=== PATIENT | male | born 1955 | race Caucasian/White ===

== ENCOUNTER 2017-11-28 20:32 | Observation (INO) | payer OTHER ==
[2017-11-28] MEDS ORDERED: NS 0.9% 1000 ML* 1,000 ML IV ONE ×2 (21:21→21:42)
[2017-11-28] MEDS ORDERED: Ondansetron INJ* 2 MG/ML VIAL IV ONE ×2 (21:21→21:41)
[2017-11-28] MEDS ORDERED: Morphine INJ* 4 MG/ML 1 ML SYRINGE (NEW SYRINGE VERSION) IV ONE (21:43)
[2017-11-28 21:45] LABS: ABS Basophils 0 10^3/ul (0-0.2); ABS Eosinophils 0 10^3/ul (0-0.6); ABS Lymphocytes 0.5 10^3/ul (1.0-4.8); ABS Monocytes 0.3 10^3/ul (0-0.8); ABS Neutrophils 5.7 10^3/ul (1.5-7.7); ABS Nucleated RBC 0 10^3/ul; Eosinophil % 0 % (0-6); Hematocrit 49 % (42-52); Hemoglobin 16.6 g/dl (14.0-18.0); Lymphocyte % 8.3 % (25-47); Mean Corpuscular HGB Conc 34 g/dl (31-36); Mean Corpuscular Hemoglobin 28 pg (27-31); Mean Corpuscular Volume 81 fL (80-94); Nucleated Red Blood Cells % 0.1; Platelet Count 139 10^3/ul (150-450); Red Blood Count 6.02 10^6/ul (4.0-5.4); Red Cell Distribution Width 14 % (10.5-15); White Blood Count 6.6 10^3/ul (3.5-10.8)
[2017-11-28 22:04] LABS: EGFR Non-African American 58.2 (>60)
[2017-11-28] MEDS ORDERED: Morphine VIAL* 4 MG/ML VIAL (1 ml vial) IV ONE (22:08)
[2017-11-28] MEDS ORDERED: Iodixanol* (CONTRAST) 320 MG/ML 100 ML SDV IV ONE (22:09)
[2017-11-29 00:37] LABS: Urine Appearance Clear; Urine Blood 1+ (Negative); Urine Color Yellow; Urine Ketones Negative (Negative); Urine Protein Negative (Negative); Urine Specific Gravity > 1.060 (1.010-1.030); Urine Urobilinogen Negative (Negative)
[2017-11-29] MEDS ORDERED: Morphine INJ* 4 MG/ML 1 ML SYRINGE (NEW SYRINGE VERSION) IV ONE (01:03)
[2017-11-29] MEDS ORDERED: Morphine VIAL* 4 MG/ML VIAL (1 ml vial) IV ONE (01:06)
[2017-11-29] MEDS ORDERED: Ondansetron INJ* 2 MG/ML VIAL IV PRN (01:33)
[2017-11-29] MEDS ORDERED: Temazepam CAP* 15 MG PO PRN (01:33)
[2017-11-29] MEDS ORDERED: Acetaminophen TAB* 325 MG PO PRN (01:33)
[2017-11-29] MEDS ORDERED: NS 0.9% 1000 ML* 1,000 ML IV SCH (01:45)
--- NOTE | 2017-11-29 03:39 | ED ---
Sony Abraham Rebecca, scribed for Jayson Ash MD on 11/28/17 at 2133 . Abdominal Pain/Male - HPI Summary HPI Summary: Pt is a 62 y/o M who presents to ED c/o abdominal pain. Sx began yesterday, located in the epigastric region, and current pain is severe, ranked 8/10. Sx aggravated and alleviated by nothing. Additionally c/o V/D, abdominal bloating and a fever of 102 this morning. Pt reports a few episodes of diarrhea today and 4-5 last night with BM being described as liquid. Last episode at 1400. PSHx appy. No recent Abx or abnormal food. - History of Current Complaint Chief Complaint: EDNauseaVomitDiarrh Stated Complaint: VOMITING/ABD PAIN Time Seen by Provider: 11/28/17 21:20 Hx Obtained From: Patient Onset/Duration: Lasting Days - 1 day, Still Present Severity Currently: Severe Pain Intensity: 8 Pain Scale Used: 0-10 Numeric Location: Epigastric Aggravating Factor(s): Nothing Alleviating Factor(s): Nothing Associated Signs And Symptoms: Positive: Fever, Vomiting, Diarrhea, Other - Abdominal bloating - Allergies/Home Medications Allergies/Adverse Reactions: Allergies Allergy/AdvReac Type Severity Reaction Status Date / Time Iodinated Contrast- Oral and AdvReac Vomiting Verified 11/28/17 20:38 IV Dye Home Medications: Home Medications Aspirin 81 mg CHEW TAB* [Aspirin Low Dose TAB*] 81 mg PO DAILY 11/28/17 [ History Confirmed 11/28/17] PMH/Surg Hx/FS Hx/Imm Hx Endocrine/Hematology History: Denies: Hx Diabetes, Hx Anemia Cardiovascular History: Reports: Hx Hypertension Denies: Hx Pacemaker/ICD GI History: Denies: Hx Jaundice Sensory History: Reports: Hx Contacts or Glasses Denies: Hx Hearing Aid Opthamlomology History: Reports: Hx Contacts or Glasses Psychiatric History: Denies: Hx Panic Disorder - Surgical History Surgery Procedure, Year, and Place: APPENDIX. knee surgery age 10. lipoma removal right antecub area Infectious Disease History: No Infectious Disease History: Denies: Traveled Outside the [place] in Last 30 Days - Family History Known Family History: Positive: Hypertension - Social History Alcohol Use: None Hx Substance Use: Yes Substance Use Type: Reports: None, Marijuana Substance Use Comment - Amount & Last Used: once every few years Hx Tobacco Use: No Smoking Status (MU): Never Smoked Tobacco Review of Systems Positive: Fever Positive: Abdominal Pain, Vomiting, Diarrhea, Other - Abdominal bloating All Other Systems Reviewed And Are Negative: Yes Physical Exam - Summary Physical Exam Summary: VITAL SIGNS: Reviewed. GENERAL: ~Patient is a well-developed and nourished male who is lying comfortable in the stretcher. Patient is not in any acute respiratory distress. HEAD AND FACE: No signs of trauma. No ecchymosis, hematomas or skull depressions. No sinus tenderness. EYES: PERRLA, EOMI x 2, No injected conjunctiva, no nystagmus. EARS: Hearing grossly intact. Ear canals and tympanic membranes are within normal limits. MOUTH: Oropharynx within normal limits. NECK: Supple, trachea is midline, no adenopathy, no JVD, no carotid bruit, no c- spine tenderness, neck with full ROM. CHEST: Symmetric, no tenderness at palpation LUNGS: Clear to auscultation bilaterally. No wheezing or crackles. CVS: Regular rate and rhythm, S1 and S2 present, no murmurs or gallops appreciated. ABDOMEN: Soft, mild diffuse tenderness with hypoactive BS. No signs of distention. No rebound no guarding, and no masses palpated. EXTREMITIES: FROM in all major joints, no edema, no cyanosis or clubbing. NEURO: Alert and oriented x 3. No acute neurological deficits. Speech is normal and follows commands. SKIN: Dry and warm Triage Information Reviewed: Yes Vital Signs On Initial Exam: Initial Vitals Temp Pulse Resp BP Pulse Ox 97.6 F 103 20 143/94 93 11/28/17 20:34 11/28/17 20:34 11/28/17 20:34 11/28/17 20:34 11/28/17 20:34 Vital Signs Reviewed: Yes Diagnostics - Vital Signs Vital Signs Temp Pulse Resp BP Pulse Ox 11/28/17 21:10 87 93 11/28/17 21:08 147/99 11/28/17 20:34 97.6 F 103 20 143/94 93 - Laboratory Result Diagrams: 11/28/17 21:38 11/28/17 21:38 Lab Statement: Any lab studies that have been ordered have been reviewed, and results considered in the medical decision making process. - CT CT Abd/Pel CT Interpretation: Positive (See Comments) - Small bowel obstruction without abscess, free or discrete transition point. Moderate prostate enlargement. ADDENDUM: Although SBO cannot be excluded, findings may represent a localized small bowel ileus. ED physician reviewed this radiology report. Pending official report. CT Interpretation Completed By: Radiologist - EKG 2125 Cardiac Rate: NL - 87 bpm EKG Rhythm: Sinus Rhythm EKG Interpretation: Nonspecific T wave changes in the inferior leads Re-Evaluation - Re-Evaluation First Eval Re-Evaluation Time: 00:48 Comment: Discussed results with the pt. Abdominal Pain Fem Course/Dx - Course Assessment/Plan: Pt is a 62 y/o M who presents to ED c/o abdominal pain since yesterday, located in the epigastric region, and current pain is severe, ranked 8/10. Additionally c/o V/D, abdominal bloating and a fever of 102 this morning. Pt reports a few episodes of diarrhea today and 4-5 last night with BM being described as liquid. Last episode at 1400. PSHx appy. No recent Abx or abnormal food. CT Abd/Pel reveals "Small bowel obstruction without abscess, free or discrete transition point. Moderate prostate enlargement. ADDENDUM: Although SBO cannot be excluded, findings may represent a localized small bowel ileus." EKG is sinus rhythm with with nonspecific T wave changes in the inferior leads. In the ED course, pt received morphine, zofran and fluids. Discussed care of pt with Dr. Patricio who accepted pt for admission. Pt does not have any signs/ symptoms of mechanical SBO, pt has no vomiting in the ED. He has been having diarrhea. He has hypoactive bowel sounds so all these findings are against a mechanical SBO. However, the pt will be admitted for observation with Dx of gastroentertiis, abdominal pain, r/o SBO. He understands and agrees. - Diagnoses Provider Diagnoses: Gastroenteritis, Abdominal pain - Provider Notifications Discussed Care Of Patient With: Bucky Patricio Time Discussed With Above Provider: 01:34 Instructed by Provider To: Admit As Observation Discharge - Sign-Out/Discharge Documenting (check all that apply): Discharge - Admitted - Discharge Plan Condition: Stable Disposition: ADMITTED TO [facility] Referrals: Krystle Hernandez MD [Primary Care Provider] - The documentation as recorded by the Sony ernandez Rebecca accurately reflects the service I personally performed and the decisions made by me, Jayson Ash MD.
[2017-11-29] MEDS: Morphine INJ* 2 MG/ML 1 ML CARPUJECT IV PRN ×2 (05:04→11:46)
[2017-11-29] MEDS: Heparin VIAL(*) 5000 UNITS/ML VIAL (FIVE THOUSAND) SUBCUT SCH ×2 (05:08→14:40)
[2017-11-29 06:06] LABS: ABS Basophils 0 10^3/ul (0-0.2); ABS Eosinophils 0 10^3/ul (0-0.6); ABS Monocytes 0.4 10^3/ul (0-0.8); ABS Neutrophils 3.7 10^3/ul (1.5-7.7); ABS Nucleated RBC 0 10^3/ul; Eosinophil % 0.2 % (0-6); Hematocrit 44 % (42-52); Hemoglobin 14.9 g/dl (14.0-18.0); Lymphocyte % 19.3 % (25-47); Mean Corpuscular HGB Conc 34 g/dl (31-36); Mean Corpuscular Hemoglobin 28 pg (27-31); Mean Corpuscular Volume 82 fL (80-94); Mean Platelet Volume 8.8 um3 (7.4-10.4); Nucleated Red Blood Cells % 0.1; Platelet Count 118 10^3/ul (150-450); Red Blood Count 5.35 10^6/ul (4.0-5.4); Red Cell Distribution Width 14 % (10.5-15); White Blood Count 5.1 10^3/ul (3.5-10.8)
[2017-11-29 06:19] LABS: EGFR Non-African American 71.9 (>60)
--- NOTE | 2017-11-29 07:45 | RAD ---
CLINICAL HISTORY: Abdominal pain COMPARISON: None TECHNIQUE: Multiple contiguous axial CT scans were obtained of the abdomen and pelvis after the administration of intravenous contrast. Coronal and sagittal multiplanar reformations are submitted for review. Oral contrast was not administered. Delayed images were obtained through the abdomen and pelvis. FINDINGS: LUNG BASES: There is linear atelectasis of the lung bases bilaterally. LIVER: The liver is diffusely low in attenuation compared to the spleen. There are no focal hepatic parenchymal masses. The liver measures 21.4 cm in long axis. BILE DUCTS: There is no intrahepatic or extrahepatic biliary dilatation. GALLBLADDER: The gallbladder is normal, without pericholecystic inflammatory change. PANCREAS: The pancreas is normal, without mass or ductal dilatation. SPLEEN: Normal in size and appearance. UPPER GI TRACT: Evaluation of the gastrointestinal tract is limited by incomplete gastric distention. The upper GI tract is unremarkable. SMALL BOWEL AND MESENTERY: There is distention mild dilatation of small bowel loops proximally with transition to decompressed small bowel at the left mid abdomen is seen on coronal image 50. COLON: There are multiple diverticula of the descending and sigmoid colon. There is no pericolonic inflammatory change. ADRENALS: Normal bilaterally. KIDNEYS: The kidneys are normal in shape, size, contour, and axis. There is no hydronephrosis or nephrolithiasis. BLADDER: There is additional extension of the prostate gland into the bladder. There is asymmetric posterior bladder wall thickening at the level of the trigone on the right. PELVIC ORGANS: The prostate is diffusely enlarged, with intraluminal extension into the bladder.. The seminal vesicles are symmetric. AORTA: There is minimal atherosclerotic disease of the abdominal aorta. There is no intestinal dilatation.. IVC: Unremarkable LYMPH NODES: There is no lymphadenopathy by size criteria. ABDOMINAL WALL: There is no evidence for abdominal wall hernia. BONES AND SOFT TISSUES: Degenerative changes are noted. OTHER: None IMPRESSION: 1. DISTENTION AND MILD DILATATION OF SMALL BOWEL LOOPS, WITH TRANSITION TO DECOMPRESSED SMALL BOWEL LOOPS IN THE LEFT MIDABDOMEN, SUGGESTIVE OF EARLY OR PARTIAL OBSTRUCTION. 2. DIVERTICULOSIS. 3. HEPATOMEGALY WITH FATTY INFILTRATION OF LIVER. 4. ENLARGED PROSTATE WITH INTRALUMINAL EXTENSION INTO THE BLADDER. 5. THERE IS ASYMMETRIC BLADDER WALL THICKENING ON THE RIGHT. RECOMMEND CONSIDERATION OF CORRELATION WITH DIRECT VISUALIZATION OF THE BLADDER
--- NOTE | 2017-11-29 08:59 | HP ---
CC: Krystle Hernandez M.D. * HISTORY AND PHYSICAL: DATE OF ADMISSION: 11/29/17. TIME OF MY EVALUATION: 4:00 a.m. PRIMARY CARE PROVIDER: Krystle Hernandez M.D. CHIEF COMPLAINT: Abdominal pain/nausea/vomiting/diarrhea. HISTORY OF PRESENT ILLNESS: Mr. Dean is a 62-year-old gentleman with limited past medical history - paroxysmal atrial fibrillation, on diltiazem, as well as enlarged prostate under urology surveillance and treatment - who now presents with abdominal pain with nausea, vomiting, and diarrhea. The patient states that he has had a fever, highest 102 degrees Fahrenheit. He also complains of vomiting and diarrhea. He had a few episodes of diarrhea the day prior to admission, November 28. He had a liquid BM. There has been no blood. The patient has a surgical history of appendectomy secondary to acute appendicitis, but that was many years ago. Patient denies any recent abnormal food or ill contacts. The patient has vomited several times. He has epigastric pain, at its most severe was 8/10. The patient underwent an abdominal CT scan which, preliminarily, was interpreted as a small bowel obstruction without a discrete transition points. Moderate prostate enlargement was noted. Differential diagnosis included a small bowel ileus. The official radiology read is, again, pending. The patient was referred for admission when several abnormal labs came back including an elevated creatinine at 1.25 relative to his baseline at 1, with an elevated anion gap of 12, and ongoing abdominal pain and an elevated CRP at 54.3. The patient's urine studies were normal as was his electrocardiogram. The patient was afebrile here, though the fever reported at home was noted. His blood pressures are robust. He does not meet criteria for sepsis with lactic acid normal at 1.5, and no known organ dysfunction. PAST MEDICAL HISTORY: 1. Paroxysmal atrial fibrillation (not on anticoagulation) - rate control/ hypertension control with Diltiazem. 2. Enlarged prostate - sees Dr. Levi Pedro for urology. 3. Hypertension. 4. History of contacts/glasses. PAST SURGICAL HISTORY: Knee surgery at age 10, lipoma removal from the right antecubital area, as well as history of appendectomy. OUTPATIENT MEDICATIONS: 1. Aspirin 81 mg by mouth daily. 2. Nexium 20 mg by mouth daily. 3. Diltiazem 24 mg by mouth daily with meal (extended-release). ALLERGIES: Reported history to oral and IV dye, although the patient states that he has had IV dye and done well since that event. FAMILY HISTORY: Significant only for hypertension. No history of episodic gastrointestinal disease similar to current presentation. 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 She is the surrogate decision maker. Her emergency contact is on file. He is a full code. REVIEW OF SYSTEMS: A review of 14-point systems was accomplished at the bedside. This is negative except for the pertinent positives as mentioned above in the HPI and past medical history. PHYSICAL EXAMINATION GENERAL APPEARANCE: Approximately a 58-year-old man with no apparent distress. He is sleeping in his bed. No apparent distress. Awake, alert, and oriented x3. Good medical file clerk. VITAL SIGNS: Temperature 98.6 Fahrenheit, pulse 71, oxygen saturation 93% on room air, blood pressure 148/88, respirations 16 per minute and regular. HEENT: Oropharynx is clear. Mucous membranes are moist. Nares patent. No posterior pharyngeal erythema or exudate. NECK: Supple. No elevated JVD. CHEST: Clear breath sounds anteriorly and posteriorly. No rales, rhonchi, or wheezing. HEART: Regular rate, and rhythm. No murmurs, rubs, or gallop. ABDOMEN: Soft and nontender at this time (status post opioid administration), quiet bowel sounds. NEURO: Moves all extremities equally. Normal sensory and motor components. SKIN: Dry, intact. No rashes, lesions, breakdown. LYMPH: No adenopathy appreciated. EXTREMITIES: Without clubbing, cyanosis, or edema. Good muscle tone and bulk throughout. No evidence of arthritis. ADMISSION DATA: Includes a normal white blood cell count of 6.6, hemoglobin robust at 16.6, platelets 139. Blood chemistries significant for borderline low sodium at 137. Modestly elevated anion gap at 12. Creatinine 1.25, BUN normal at 21, glucose 149. Lactic acid 1.5. Total bilirubin modestly elevated at 2. AST and ALT are normal. Troponin 0.01. CRP elevated at 54.29. Protein levels preserved. Urinalysis unremarkable except 1+ blood by dip. Specific gravity is elevated at greater than 1.06. CT scan was described in the HPI, but the final read is pending. Therefore, diagnosis is SBO without transition point versus ileus. IMPRESSION: Mr. Dean is 62-year-old gentleman with what seems to be a recent gastrointestinal illness, likely viral gastroenteritis with nausea, vomiting, and diarrhea, poor oral intake for 2 days and dehydration, with elevated creatinine relative to baseline. PLAN BY MEDICAL PROBLEM: 1. Gastroenteritis with abdominal pain manifest by nausea, vomiting, and diarrhea with symptoms resolved other than pain (pain continues). 2. Place patient on observation - hydrate with 1-2 liters of normal saline with recheck of labs for response of creatinine and correction of dehydration. 3. Check and replete electrolytes. 4. Monitor diarrheal output, and ability to tolerate oral fluids and food. 5. Patient is currently in normal sinus rhythm - no need for telemetry. 6. We will continue outpatient medications. 7. We will follow up CT abdomen/pelvis official read. 8. We will evaluate for inpatient status based on clinical progress. TOTAL SPENT: Total time taken to admit Mr. Dean was 50 minutes; greater than half the time was spent at the bedside going over his history and physical examination, and explaining the plan of care to him. [id number]/[facility] #: [id number] SHERIF
[2017-11-29] MEDS ORDERED: Aspirin 81 mg CHEW TAB* 81 MG TAB.CHEW PO SCH (09:00)
[2017-11-29] MEDS ORDERED: Omeprazole CAP* 20 MG PO SCH (09:00)
[2017-11-29] MEDS ORDERED: Diltiazem CD CAP* 240 MG PO SCH (09:00)
--- NOTE | 2017-11-29 10:48 | PN ---
Subjective Date of Service: 11/29/17 Interval History: Patient was seen and examined at bedside. Reports feeling much better, just tired from lack of sleep. His abdominal pain has resolved. Denies nausea or vomiting. Has not had any loose BMs since he was admitted last night. Passing flatus and feels hungry. Tolerating clear liquids. Ambulatory OOB. He has no c/ o today. He thinks a turkey club sandwich that he had while travelling down [place] might caused his abdominal discomfort and N/V/D. No recent antibiotics use or sick contact. Family History: Unchanged from Admission Social History: Unchanged from Admission Past Medical History: Unchanged from Admission Objective Active Medications: Acetaminophen (Tylenol Tab*) 650 mg PO Q4H PRN PRN Reason: FEVER/PAIN Aspirin (Aspirin 81 Mg Chew Tab*) 81 mg PO DAILY [facility] Last Admin: 11/29/17 08:51 Dose: 81 mg Diltiazem HCl (Cardizem Cd Cap*) 240 mg PO DAILY WITH MEAL [facility] PRN Reason: Protocol Last Admin: 11/29/17 09:15 Dose: 240 mg Heparin Sodium (Porcine) (Heparin Vial(*)) 5,000 units SUBCUT Q8HR [facility] Last Admin: 11/29/17 05:08 Dose: 5,000 units Morphine Sulfate (Morphine Inj (Syringe)*) 2 mg IV Q4H PRN PRN Reason: PAIN Last Admin: 11/29/17 05:04 Dose: 2 mg Omeprazole (Prilosec Cap*) 20 mg PO 0600 [facility] Last Admin: 11/29/17 09:15 Dose: 20 mg Ondansetron HCl (Zofran Inj*) 4 mg IV Q4H PRN PRN Reason: NAUSEA/VOMITING Temazepam (Restoril Cap*) 15 mg PO BEDTIME PRN PRN Reason: INSOMNIA Vital Signs - 8 hr 11/29/17 11/29/17 11/29/17 03:00 03:17 03:24 Temperature 98.6 F 98.2 F Pulse Rate 70 71 69 Respiratory 16 16 Rate Blood Pressure 148/88 148/88 156/91 (mmHg) O2 Sat by Pulse 94 93 94 Oximetry 11/29/17 11/29/17 11/29/17 03:28 05:04 06:23 Temperature 98.2 F Pulse Rate 69 Respiratory 16 18 18 Rate Blood Pressure 156/91 (mmHg) O2 Sat by Pulse 94 Oximetry 11/29/17 07:21 Temperature 97.8 F Pulse Rate 73 Respiratory 18 Rate Blood Pressure 148/98 (mmHg) O2 Sat by Pulse 96 Oximetry Oxygen Devices in Use Now: None Appearance: Appears healthy and well-developed. Laying on bed with in room , comfortable and in NAD. Eyes: No Scleral Icterus, PERRLA Ears/Nose/Mouth/Throat: Mucous Membranes Moist Neck: NL Appearance and Movements; NL JVP, Trachea Midline Respiratory: Symmetrical Chest Expansion and Respiratory Effort, Clear to Auscultation Cardiovascular: NL Sounds; No Murmurs; No JVD, RRR Abdominal: No Hepatosplenomegaly, - - Soft and non-tender. Mild distension noted , but no guarding, rigidity or tympany. No rebound tenderness. Bowel sounds normoactive in all quadrants. Extremities: No Edema Neurological: Alert and Oriented x 3 Nutrition: Taking PO's Result Diagrams: 11/29/17 05:49 11/29/17 05:49 Diagnostic Imaging: Patient Name: IVONNE DEAN JR Medical Record#: [id number] Ordering Physician: Jayson Ash MD Acct.#: [id number] : 1955 Age: 62 Sex: M Location: [address] [place] [address] - MEDICAL Exam Date: 11/28/172140 ADM Status: ADM Felix Order Information: CT ABD/PEL W Accession Number: [id number] CPT: 89619 CLINICAL HISTORY: Abdominal pain OTHER: None IMPRESSION: 1. DISTENTION AND MILD DILATATION OF SMALL BOWEL LOOPS, WITH TRANSITION TO DECOMPRESSED SMALL BOWEL LOOPS IN THE LEFT MIDABDOMEN, SUGGESTIVE OF EARLY OR PARTIAL OBSTRUCTION. 2. DIVERTICULOSIS. 3. HEPATOMEGALY WITH FATTY INFILTRATION OF LIVER. 4. ENLARGED PROSTATE WITH INTRALUMINAL EXTENSION INTO THE BLADDER. 5. THERE IS ASYMMETRIC BLADDER WALL THICKENING ON THE RIGHT. RECOMMEND CONSIDERATION OF CORRELATION WITH DIRECT VISUALIZATION OF THE BLADDER Assess/Plan/Problems-Billing Assessment: A 62 y/o male with 2 days history of increasing abdominal pain and distension with associated N/V/D, consistent with viral gastroenteritis. - Patient Problems (1) Gastroenteritis Current Visit: Yes Status: Acute Comment: Patient seems to improve clinically overnight. Plan to advance his diet to full liquids for lunch. He feels hungry and has been passing flatus as well. No recurrent diarrhea since admission. No nausea or vomiting since admission. (2) Dehydration Current Visit: Yes Status: Acute Comment: Improving with IVF hydration and tolerated PO intake (3) Hypertension Current Visit: Yes Comment: Controlled, will continue his Diltiazem (4) Gastroesophageal reflux Current Visit: Yes Status: Acute Code(s): K21.9 - GASTRO-ESOPHAGEAL REFLUX DISEASE WITHOUT ESOPHAGITIS SNOMED Code(s): 142685427 Comment: Continue PPI coverage with Prilosec (5) DVT prophylaxis Current Visit: Yes Status: Acute Code(s): IUL7047 - SNOMED Code(s): 158464853 Comment: Early ambulation (6) Full code status Current Visit: Yes Status: Acute Code(s): Z78.9 - OTHER SPECIFIED HEALTH STATUS SNOMED Code(s): 626352446 Comment: He is a full code. Status and Disposition: Mr. Dean is clinically improving with no abdominal pain, N/V/D since his admission late last night. He is tolerating PO intake. Repeated labs this AM unremarkable. Plan to advance his diet today. If continues to improve, likely to discharge home this afternoon/evening.
[2017-11-29 16:22] VITALS: BP 144/91
--- NOTE | 2017-11-30 22:56 | DS ---
AMENDED REPORT NOW INCLUDES COSIGNER DESIGNATION - ESIGNED BEFORE ADJUSTMENTS DISCHARGE SUMMARY: DATE OF ADMISSION: 11/28/17 DATE OF DISCHARGE: 11/29/17 PATIENT OF: Bucky Patricio MD ADMITTING PHYSICIAN: Bucky Patricio MD ATTENDING PHYSICIAN: Dr. Schroeder.* (DICTATED BY HORTENCIA GONZALES) ADMISSION DIAGNOSES: 1. Abdominal pain. 2. Nausea, vomiting and diarrhea. 3. Probable viral gastroenteritis. 4. History of gastroesophageal reflux disease. 5. History of paroxysmal atrial fibrillation with rate control using diltiazem. DISCHARGE DIAGNOSES: 1. Abdominal pain. 2. Nausea, vomiting and diarrhea. 3. Probable viral gastroenteritis. 4. History of gastroesophageal reflux disease. 5. History of paroxysmal atrial fibrillation with rate control using diltiazem. CONSULTATION: None. BRIEF MEDICAL HISTORY: Mr. Dean is a 62-year-old gentleman with limited past medical history with the exception of paroxysmal atrial fibrillation for which he has been taking diltiazem with good rate control. He presented to the emergency room in the late evening hours of 11/28/17 with complaints of worsening abdominal pain with associated nausea, vomiting and diarrhea. He also reported tactile fever that he measured and it was up to 102 degrees at home. He denies any recent travel outside the country or antibiotic intake. He had noticed no coffee-ground emesis or bright red blood per rectum. The patient reports that he was traveling for the past couple of days and had multiple meals from restaurants and fast food places. He returned home yesterday and noticed gradual abdominal cramping mostly in the upper abdomen with associated nausea and 1 episode of large amount of emesis prior to presentation to the emergency room. He was evaluated and he was found to have elevated CRP at 54 value as well as elevated anion gap of 12. The patient notes that he has been not able to maintain any p.o. intake due to his nausea. He also had a CT scan of the abdomen and pelvis that revealed the possibility of dilated small bowel consistent with ileus versus small bowel obstruction. Given his ongoing symptoms, the patient was admitted for observation under the hospitalist service. HOSPITAL COURSE: The patient was admitted under the hospitalist service for observation and IV hydration. His labs were repeated on the following day and his electrolytes was corrected accordingly. He was evaluated the next morning after he received 3 L of normal saline. He was able to tolerate p.o. intake using clear liquids and his diet was slowly advanced over the day. He was ambulatory out of bed in stable condition. His exam was essentially unremarkable with the exception of mild abdominal dilatation. He had no tenderness, rebound or guarding. He continued to pass flatus and the patient was evaluated again in the afternoon and was found to be stable for discharge. DISCHARGE MEDICATIONS: Include: 1. Zofran ODT 4 mg p.o. q.6 hours as needed for nausea. 2. Nexium 20 mg p.o. daily. 3. Diltiazem 240 mg p.o. daily. 4. Aspirin 81 mg p.o. daily. PROBLEM LIST: 1. Viral gastroenteritis, resolved with IV hydration and symptomatic treatment. 2. Dehydration, resolved with IV hydration and p.o. intake. 3. Hypertension, controlled. 4. Gastroesophageal reflux disease, will continue his Nexium. HORTENCIA GONZALES [id number]/[facility] #: [id number] MTDReuben
== END 2017-11-29 17:00 | disposition home or self-care (01) ==
LOC: ED 20:32 → MED 11-29 01:33
PROVIDERS: ADMIT Internal Medicine; ATTEND Internal Medicine
DX: K52.9 Noninfective gastroenteritis and colitis, unspecified (principal); E86.0 Dehydration; I10 Essential (primary) hypertension; K21.9 Gastro-esophageal reflux disease without esophagitis; K59.8 Other specified functional intestinal disorders; R10.9 Unspecified abdominal pain; R50.9 Fever, unspecified; R11.10 Vomiting, unspecified; R19.7 Diarrhea, unspecified; R14.0 Abdominal distension (gaseous); K57.90 Diverticulosis of intestine, part unspecified, without perforation or abscess without bleeding; K76.0 Fatty (change of) liver, not elsewhere classified
CPT/HCPCS: 36415; 74177; 80048; 80053; 81003; 81015; 83605; 83690; 84484; 85025; 86140; 87040; 93005; 99284; A9270-GY; G0378; J1644; J2270; J2405; Q9967

== ENCOUNTER 2018-09-30 04:39 | Emergency (ER) | payer OTHER ==
[2018-09-30] MEDS ORDERED: Aspirin 81 mg CHEW TAB* 81 MG TAB.CHEW PO ONE (05:42)
[2018-09-30] MEDS ORDERED: Aspirin 81 mg CHEW TAB* 81 MG TAB.CHEW ONE (05:45)
[2018-09-30 06:02] LABS: ABS Basophils 0 10^3/ul (0-0.2); ABS Eosinophils 0.1 10^3/ul (0-0.6); ABS Lymphocytes 1.5 10^3/ul (1.0-4.8); ABS Monocytes 0.5 10^3/ul (0-0.8); ABS Neutrophils 4.3 10^3/ul (1.5-7.7); ABS Nucleated RBC 0 10^3/ul; Eosinophil % 1.5 %; Hematocrit 45 % (42-52); Lymphocyte % 23.1 %; Mean Corpuscular HGB Conc 33 g/dl (31-36); Mean Corpuscular Hemoglobin 27 pg (27-31); Mean Corpuscular Volume 82 fL (80-94); Nucleated Red Blood Cells % 0; Platelet Count 151 10^3/ul (150-450); Red Blood Count 5.49 10^6/ul (4.00-5.40); Red Cell Distribution Width 14 % (10.5-15); White Blood Count 6.3 10^3/ul (3.5-10.8)
[2018-09-30] MEDS ORDERED: Morphine VIAL* 4 MG/ML VIAL (1 ml vial) IV ONE (06:03)
[2018-09-30 06:11] LABS: Activated Partial Thrombo Time 27.5 seconds (26.0-36.3); INR 0.96 (0.77-1.02)
[2018-09-30] MEDS ORDERED: Morphine VIAL* 10 MG/ML 1 ML VIAL IV ONE (06:15)
--- NOTE | 2018-09-30 06:23 | ED ---
HPI Cardiac - HPI Summary HPI Summary: Patient is a 63-year-old male with history of A. fib, HTN, HCL presenting to the ED with CC of acute onset of mid back pain radiating to the L side of the chest. This occurred at 3am this morning awakening him from sleep and has remained constant. Pain is rated 7/10 since 3am and currently a 6/10. He also endorses a-fib. He is able to tell when he is in a-fib and states it occurs maybe twice a year (usually when he is eating an unhealthy diet.) Symptoms are not worse or better with positioning. Symptoms not worse with exertion. Denies diaphoresis during this episode and denies any weakness. He endorses transient nausea (he states likely secondary to pain) but no emesis. Two bowel movements which were small and loose this morning after onset. Hx of some back pain but states this feels much different. Denies SOB. Denies numbness or tingling or temperature changes in the arms/hands or legs/feet. Denies neck pain or pain to the arms. Denies ALVARADO, visual changes. Medications include: Diltiazem 240, Aspirin 81mg and Irbesartan 75mg. - History of Current Complaint Chief Complaint: EDGeneral Stated Complaint: BACK PAIN, GENERAL ILLNESS Time Seen by Provider: 09/30/18 05:41 Hx Obtained From: Patient Onset/Duration: Started Hours Ago Time of Onset: 03:00 Timing: Constant Initial Severity: Moderate Current Severity: Moderate Pain Intensity: 8 Pain Scale Used: 0-10 Numeric Chest Pain Location: Diffuse - mid back radiating to the left chest Chest Pain Radiates: Yes Chest Pain Radiates To:: Other - left chest Character: Dull/Aching, Irregular Aggravating Factor(s): Nothing Alleviating Factor(s): Nothing Associated Signs and Symptoms: Positive: Chest Pain, Palpitations. Negative: Vision Changes, Anxiety, Recent Stress, Headaches, Numbness, Shortness of Breath , Lightheadedness, Diaphoresis, Productive Cough, Nonproductive Cough, Calf Pain /Swelling, Vomiting - Risk Factors Pulmonary Embolism Risk Factors: Negative Cardiac Risk Factors: Negative Pseudomonas Risk Factors: Negative Tuberculosis Risk Factors: Negative - Additional Pertinent History Primary Care Physician: JOSE DAVID - Allergy/Home Medications Allergies/Adverse Reactions: Allergies Allergy/AdvReac Type Severity Reaction Status Date / Time No Known Allergies Allergy Verified 09/30/18 06:26 Home Medications: Home Medications Irbesartan 75 mg PO DAILY 09/30/18 [History Confirmed 09/30/18] Saw/Py/Net/Pumpk/Beta/Ly/Zn/Cu [Prostate Control Softgel] 1 cap PO DAILY [History Confirmed 09/30/18] PMH/Surg Hx/FS Hx/Imm Hx Previously Healthy: Yes - HCl, HTN, A. fib Endocrine/Hematology History: Denies: Hx Diabetes, Hx Anemia Cardiovascular History: Reports: Hx Hypercholesterolemia, Hx Hypertension, Other Cardiovascular Problems/Disorders - SVT Denies: Hx Pacemaker/ICD Respiratory History: Reports: Hx Sleep Apnea GI History: Reports: Hx Gastroesophageal Reflux Disease Denies: Hx Jaundice History: Reports: Hx Benign Prostatic Hyperplasia Denies: Hx Renal Disease Sensory History: Reports: Hx Contacts or Glasses Denies: Hx Deafness, Hx Hearing Aid Opthamlomology History: Reports: Hx Contacts or Glasses Psychiatric History: Denies: Hx Panic Disorder - Surgical History Surgery Procedure, Year, and Place: APPENDIX. knee surgery age 10. lipoma removal right antecub area - Immunization History Hx Pertussis Vaccination: No Immunizations Up to Date: Yes Infectious Disease History: No Infectious Disease History: Denies: Traveled Outside the [place] in Last 30 Days - Family History Known Family History: Positive: Hypertension - Social History Occupation: Employed Full-time Lives: With Family Alcohol Use: Rare Hx Substance Use: Yes Substance Use Type: Reports: None Substance Use Comment - Amount & Last Used: once every few years Hx Tobacco Use: No Smoking Status (MU): Never Smoked Tobacco Review of Systems Negative: Fever, Chills, Fatigue, Skin Diaphoresis Negative: Epistaxis, Dental Pain Positive: Chest Pain - with associated back pain. Negative: Palpitations Negative: Shortness Of Breath, Cough Genitourinary: Negative Positive: no symptoms reported, see HPI Negative: Arthralgia, Myalgia Skin: Negative Neurological: Negative All Other Systems Reviewed And Are Negative: Yes Physical Exam Triage Information Reviewed: Yes Vital Signs On Initial Exam: Initial Vitals Temp Pulse Resp BP Pulse Ox 98.7 F 74 16 149/92 96 09/30/18 04:39 09/30/18 04:39 09/30/18 04:39 09/30/18 04:39 09/30/18 04:39 Vital Signs Reviewed: Yes Appearance: Positive: Well-Appearing, Well-Nourished Skin: Positive: Warm, Skin Color Reflects Adequate Perfusion Head/Face: Positive: Normal Head/Face Inspection Eyes: Positive: EOMI, JOHANA, Conjunctiva Clear Neck: Positive: Supple, No Lymphadenopathy Respiratory/Lung Sounds: Positive: Clear to Auscultation, Breath Sounds Present Cardiovascular: Positive: Pulses are Symmetrical in both Upper and Lower Extremities, IRR. Negative: Bradycardia, Murmur, Leg Edema Left, Leg Edema Right Musculoskeletal: Positive: Normal, Strength/ROM Intact Neurological: Positive: Sensory/Motor Intact, Alert, Oriented to Person Place, Time, Speech Normal Psychiatric: Positive: Affect/Mood Appropriate Diagnostics - Vital Signs Vital Signs Temp Pulse Resp BP Pulse Ox 09/30/18 05:55 19 161/98 09/30/18 05:25 84 17 141/97 95 09/30/18 05:00 81 15 96 09/30/18 04:55 78 21 160/111 96 09/30/18 04:39 98.7 F 74 16 149/92 96 - Laboratory Lab Results: Lab Results 09/30/18 Range/Units 05:54 WBC 6.3 (3.5-10.8) 10^3/ul RBC 5.49 H (4.00-5.40) 10^6/ul Hgb 15.0 (14.0-18.0) g/dl Hct 45 (42-52) % MCV 82 (80-94) fL MCH 27 (27-31) pg MCHC 33 (31-36) g/dl RDW 14 (10.5-15) % Plt Count 151 (150-450) 10^3/ul MPV 9.0 (7.4-10.4) fL Neut % (Auto) 67.1 % Lymph % (Auto) 23.1 % [place] % (Auto) 7.7 % Eos % (Auto) 1.5 % Baso % (Auto) 0.6 % Absolute Neuts (auto) 4.3 (1.5-7.7) 10^3/ul Absolute Lymphs (auto) 1.5 (1.0-4.8) 10^3/ul Absolute Monos (auto) 0.5 (0-0.8) 10^3/ul Absolute Eos (auto) 0.1 (0-0.6) 10^3/ul Absolute Basos (auto) 0 (0-0.2) 10^3/ul Absolute Nucleated RBC 0 10^3/ul Nucleated RBC % 0 Result Diagrams: 09/30/18 05:54 09/30/18 05:54 Lab Statement: Any lab studies that have been ordered have been reviewed, and results considered in the medical decision making process. Re-Evaluation - Re-Evaluation First Eval Change: Improved - Patient improved after morphine and aspirin given Disposition - Course Course Of Treatment: During the course of treatment, the EKG is obtained. Rate of 85, atrial fibrillation. Ventricular premature complex. 324 chewable aspirin given as patient remains symptomatic. Patient is having back pain which is stabbing, radiating to the left side of the chest, chest x-ray obtained immediately. No mediastinal widening. No acute pulmonary process. On physical examination, there is no pulse deficit to the carotid or femoral pulse. No variation of systolic blood pressure. No evidence of heart murmur or focal neurologic deficit. IRR. Patients blood pressure remained stable, and there has been no evidence of transient hypotension. No mediastinal widening on CXR. ADD-RS risk score 1/3. D-dimer 549 and lactic 2.2. CTA obtained. BP 168/115. He is given Cardizem 240mg. CTA impression: NO ACUTE PATHOLOGY OF THE CHEST. THERE IS NO LINEAR DEFECT WITHIN THE AORTA TO SUGGEST INTIMAL FLAP IN THE SETTING OF AORTIC DISSECTION. Last echo 2+ years ago. Dr. Calderon is fitness assistant - has been 3 months+ since f/u. Called Dr. Shannon at 8: 30am who agrees to see patient in the ED. After discussion, it was concluded patient is stable for discharge home at this time as he remains asymptomatic. He is given tramadol for discomfort related to his back pain, which is possibly from lifting yesterday. He understands to f/u with his fitness assistant and PCP. - Differential Dx - Cardiopulmonary Differential Diagnoses - Cardiopulmonary: Acute Coronary, Atrial Fibrillation, Chest Wall Pain - Diagnoses Provider Diagnoses: Atypical chest pain, Atrial fibrillation - Physician Notifications Discussed Care Of Patient With: Kashmir Shannon Discharge - Sign-Out/Discharge Documenting (check all that apply): Patient Departure Patient Received Moderate/Deep Sedation with Procedure: No - Discharge Plan Condition: Stable Disposition: HOME Prescriptions: traMADol TAB* [Ultram*] 50 mg PO Q8H PRN #6 tab MDD 3 PRN Reason: Pain Referrals: Krystle Hernandez MD [Primary Care Provider] - Additional Instructions: Please follow up with your PCP and fitness assistant Call tomorrow to make an appt If any symptoms worsen, return to the ED Continue with all your at home medications Tramadol as needed for discomfort - Billing Disposition and Condition Condition: STABLE Disposition: Home
[2018-09-30 06:26] LABS: Albumin 4.1 g/dL (3.2-5.2); Albumin/Globulin Ratio 1.5 (1-3); BUN/Creatinine Ratio 13.5 (8-20); Calcium 9.3 mg/dL (8.6-10.3); EGFR African American 80.4 (>60); EGFR Non-African American 66.5 (>60); Globulin 2.7 g/dL (2-4); Potassium 4.4 mmol/L (3.5-5.0); Total Bilirubin 0.8 mg/dL (0.2-1.0); Total Protein 6.8 g/dL (6.4-8.9)
[2018-09-30] MEDS ORDERED: Ondansetron INJ* 2 MG/ML VIAL IV ONE (06:26)
[2018-09-30 06:31] LABS: Myoglobin 38.8 ng/mL (17.4-105.7)
[2018-09-30 06:32] LABS: Urine Appearance Clear; Urine Bilirubin Negative (Negative); Urine Blood Negative (Negative); Urine Color Yellow; Urine Glucose Negative (Negative); Urine Ketones Negative (Negative); Urine Nitrite Negative (Negative); Urine Protein Negative (Negative); Urine Specific Gravity 1.017 (1.010-1.030); Urine Urobilinogen Positive (Negative)
[2018-09-30] MEDS ORDERED: NS 0.9% 1000 ML** 1,000 ML IV ONE (06:36)
[2018-09-30] MEDS ORDERED: Diltiazem CD CAP* 240 MG PO ONE (06:52)
[2018-09-30] MEDS ORDERED: Iohexol 350* (CONTRAST) 500 ML MDV IV ONE (06:56)
[2018-09-30 09:50] VITALS: BP 132/93
== END 2018-09-30 09:49 | disposition home or self-care (01) ==
LOC: ED 04:39
DX: R07.89 Other chest pain (principal); I48.91 Unspecified atrial fibrillation; Z79.82 Long term (current) use of aspirin; I10 Essential (primary) hypertension
CPT/HCPCS: 36415; 71046; 71275; 80053; 81003; 82550; 82553; 83605; 83735; 83874; 83880; 84484; 85025; 85379; 85610; 85730; 93005; 96374; 96375; 99284; A9270-GY; J2270; J2405; Q9967

== ENCOUNTER 2019-06-30 07:02 | Emergency (ER) | payer OTHER ==
--- OUTSIDE RECORDS SUMMARY | 2019-06-30 07:13 | XMS REPORT | Continuity of Care Document ---
:1955 External Reference #:[id number] Author Name Moni Parson DNP, RN, ELECTION SUPERVISOR-BC (transmitted by agent of provider Omayra Rodríguez) Address [address], [address] [place] [id number] Care Team Providers Name Role Phone Krystle Hernandez MD - Internal Care Team Information Corporate Law Specialist Medicine Problems Active Problems Provider Date Benign essential hypertension Tommy Calderon M.D. Onset: 01/02/2012 Pure hypercholesterolemia Tommy Calderon M.D. Onset: 01/02/2012 Atrial fibrillation Tommy Calderon M.D. Onset: 01/02/2012 Tachycardia Tommy Calderon M.D. Onset: 01/02/2012 Obstructive sleep apnea syndrome Moni Parson DNP, RN, ELECTION SUPERVISOR-BC Onset: Note: Moderate. 06/24/17 HST: AHI 24.3/hour (supine 59.8/hour), miles oxygen 71 %, (<90% 56 minutes), wt 265#. Social History Type Date Description Comments Sex Unknown Tobacco Use Start: Unknown Never Smoked Formerly 1-2 cigars Cigarettes per year Smoking Status Reviewed: 06/11/19 Never Smoked Formerly 1-2 cigars Cigarettes per year ETOH Use Rarely consumes alcohol Recreational Drug Use Denies Drug Use Tobacco Use Start: Unknown Patient is a former Used to smoke an End: Unknown smoker occasional cigar- never any cigarettes/other tobacco products Exercise Type/Frequency Exercises regularly Allergies, Adverse Reactions, Alerts Active Allergies Reaction Severity Comments Date NKDA 04/30/2019 Inactive Allergies IVP Contrast 06/23/2008 Medications Active Medications SIG Qnty Indications Ordering Provider Date Valsartan 1 by mouth every 90tabs I10 Nay Hernandez NP 04/30/2019 80mg Tablets day Zyflament take by mouth Nay Hernandez NP 04/29/2019 twice a day Creatinine 800MG Take by mouth Nay Hernandez, MARCELO 04/29/2019 twice day Celebrex 1 by mouth once a 30caps Nay Hernandez NP 04/29/2019 100mg Capsules day as needed for pain/inflammation . avoid other nsaids L-Arginine 1000 take by mouth Nay Hernandez NP 04/29/2019 twice a day Calcium 600/Vitamin 1 by mouth every Nay Hernandez, MARCELO 04/29/2019 D3 day 569-555al-Duel Tablets Compression Stockings - ble 1units Nay Hernandez NP 08/05/2018 swelling/edema- Misc below the knee Diltiazem CD 1 by mouth every 90caps Tommy Frias 12/06/2016 240mg Caps day Ryan Calderon ER 24HR Aspirin 1 by mouth every Tommy Frias 06/23/2008 81mg Tablets day Ryan Calderon Cpap for use while Unknown Device sleeping Omeprazole 1 by mouth every Unknown 40mg day Capsules DR Pineda 100/5000Iu Take one by mouth Unknown daily Tamsulosin HCL TK One C PO bid Unknown 0.4mg For 52 Weeks Capsules Immunizations Description No Information Available Vital Signs Date Vital Result Comment 06/11/2019 8:05am Height 74 inches 6'2" Weight 259.12 lb Heart Rate 59 /min BP Systolic Sitting 128 mmHg Lue large cuff BP Diastolic Sitting 86 mmHg Lue large cuff O2 % BldC Oximetry 98 % On Ra BMI (Body Mass Index) 33.3 kg/m2 04/30/2019 3:23pm Height 74 inches 6'2" Weight 263.38 lb with shoes Heart Rate 64 /min BP Systolic Sitting 158 mmHg Lue (regular cuff) BP Diastolic Sitting 90 mmHg Lue (regular cuff) BP Systolic Standing 162 mmHg BP Diastolic Standing 94 mmHg BMI (Body Mass Index) 33.8 kg/m2 Ejection Fraction 55-60% Echocardiogram 10/14/18 Results Test Date Facility Test Result H/L Range Note Basic Metabolic 05/15/2019 [facility] Sodium 138 mmol/L Normal 135-[address] [place], [place] [id number] [phone] Potassium 3.8 mmol/L Normal 3.5-5.0 Chloride 102 mmol/L Normal 101-111 Co2 Carbon Dioxide 29 mmol/L Normal 22-32 Anion Gap 7 mmol/L Normal 2-11 Glucose 92 mg/dL Normal 70-100 Blood Urea Nitrogen 24 mg/dL Normal 6-24 Creatinine 1.14 mg/dL Normal 0.67-1.17 BUN/Creatinine Ratio 21.1 High 8-20 Calcium 8.9 mg/dL Normal 8.6-10.3 Egfr Non- 64.5 >60 Egfr 78.0 >60 1 1 Because ethnic data is not always readily available, this report includes an eGFR for both -Americans and non- Americans. The National Kidney Disease Education Program (NKDEP) does not endorse the use of the MDRD equation for patients that are not between the ages of 18 and 70, are , have extremes of body size, muscle mass, or nutritional status, or are non- or non-. According to the National Kidney Foundation, irrespective of diagnosis, the stage of the disease is based on the level of kidney function: Stage Description GFR(mL/min/1.73 m(2)) 1 Kidney damage with normal or decreased GFR 90 2 Kidney damage with mild decrease in GFR 60-89 3 Moderate decrease in GFR 30-59 4 Severe decrease in GFR 15-29 5 Kidney failure <15 (or dialysis) Procedures Date Code Description Status 04/30/2019 40401 EKG Tracing & Interpretation Completed Medical Devices Description No Information Available Encounters Type Date Location Provider Dx Diagnosis Office Visit 04/30/2019 [facility] Nay Hernandez NP I10 Essential (primary) 3:30p hypertension I77.819 Aortic ectasia, unspecified site I48.0 Paroxysmal atrial fibrillation Assessments Date Code Description Provider 06/11/2019 G47.33 Obstructive sleep apnea (adult) Moni Parson DNP, RN, (pediatric) ELECTION SUPERVISOR- 04/30/2019 I77.819 Aortic ectasia, unspecified site Tommy Calderon M.D. 04/30/2019 I10 Essential (primary) hypertension Tommy Calderon M.D. 04/30/2019 I10 Essential (primary) hypertension Nay Hernandez NP 04/30/2019 I48.0 Paroxysmal atrial fibrillation Tommy Calderon M.D. 04/30/2019 I77.819 Aortic ectasia, unspecified site Nay Hernandez NP 04/30/2019 I48.0 Paroxysmal atrial fibrillation Nay Hernandez NP Plan of Treatment Future Appointment(s):06/17/2020 8:15 am - Moni Parson DNP, RN, ELECTION SUPERVISOR-BC at [facility]07/06/2019 1:00 pm - Nay Hernandez NP at [facility]06/11/2019 - Moni Parson DNP, RN, ELECTION SUPERVISOR-BCG47.33 Obstructive sleep apnea (adult) (pediatric)Comments:06/24/17 HST AHI 24.3/ hour (supine 59.8/hour), miles oxygen 71% (<90% 56 minutes) wt 265#. On CPAP auto 4-10 cm, AHI 1.3/hourFollow up:1 yearRecommendations:Continue PAP device, Benefitting and compliant with treatment. Cleaning Wipe off mask daily (baby wipe-no scent, or warm water) Clean mask, tubing, filter, and water chamber weekly in mild no scent dish soap and water. Hang to dry. If you have any sleepiness while driving you MUST avoid operating a vehicle or machinery. If you have difficulty with your equipment, or need to replace your mask or hoses, please contact your homecare agency. A weight change of 20 pounds or more may have an effect onyour equipment; if you are experiencing problems please call for an appointment. If you have any further questions, please call the [facility] at [phone]. Functional Status Description No Information Available Mental Status Description No Information Available Referrals Description No Information Available
[2019-06-30 07:35] LABS: ABS Eosinophils 0.2 10^3/ul (0-0.6); ABS Lymphocytes 0.7 10^3/ul (1.0-4.8); ABS Monocytes 0.4 10^3/ul (0-0.8); ABS Neutrophils 2.4 10^3/ul (1.5-7.7); Eosinophil % 4.8 %; Hematocrit 41 % (42-52); Hemoglobin 14.1 g/dL (14.0-18.0); Mean Corpuscular HGB Conc 35 g/dL (31-36); Mean Corpuscular Hemoglobin 30 pg (27-31); Mean Corpuscular Volume 85 fL (80-94); Mean Platelet Volume 8.4 fL (7.4-10.4); Nucleated Red Blood Cells % 0.1; Platelet Count 140 10^3/uL (150-450); Red Blood Count 4.79 10^6 /uL (4.18-5.48); Red Cell Distribution Width 13 % (10-15); White Blood Count 3.7 10^3/uL (3.5-10.8)
--- NOTE | 2019-06-30 07:37 | ED ---
Palpitations / Dysrhythmia - HPI Summary HPI Summary: Patient is a 63 y/o M presenting to the ED for a chief complaint of palpitations that began a little before 05:00 on 06/30/19. Patient is present with his . Patient also had chest tightness with the palpitations which has since resolved. Patient denies CP, SOB, nausea, vomiting, or fever. Patient denies any aggravating or alleviating factors. Patient has a PMHx of HTN, SVT 20 years ago, and atrial fibrillation for which he denies complications. Patient has a FMHx of cardiac disease and prostate cancer. Currently, the patient is receiving treatment in [place] for prostate cancer. Patient was using a PrintToPeerter monitor recently, and was in atrial fibrillation once in that 30 day period. Patient takes aspirin and medication for atrial fibrillation. Patient follows up with his collar pointer, Dr. Tommy Calderon. - History of Current Complaint Chief Complaint: EDDysrhythmPalp Time Seen by Provider: 06/30/19 07:18 Hx Obtained From: Patient Onset/Duration: Sudden Onset, Resolved Severity Initially: Moderate Severity Currently: Moderate Character: Fast - Palpitations Aggravating: Nothing Alleviating: Nothing Associated Signs & Symptoms: Negative - Allergy/Home Medications Allergies/Adverse Reactions: Allergies Allergy/AdvReac Type Severity Reaction Status Date / Time No Known Allergies Allergy Verified 06/30/19 07:30 Home Medications: Home Medications Neri/D3/Mag11/Zinc/Chief Deputy Sheriff/Isaac/Bor [Caltrate 600+D Plus Tablet] 1 each PO DAILY 01/11 [History Confirmed 06/30/19] Cholecalciferol CAP/TAB(NF) [Vitamin D3 CAP/TAB (NF)] 5,000 unit PO DAILY [History Confirmed 06/30/19] Creatine Monohydrate Caps 800 mg PO DAILY 06/30/19 [History Confirmed 06/30/19] Docusate CAP* [Colace Cap*] 100 mg PO DAILY PRN 06/30/19 [History Confirmed 01/11] Estradiol PATCH 0.1 MG/DAY* [Climara PATCH 0.1 MG/DAY*] 1 patch TOPICAL .TWICE WEEKLY 06/30/19 [History Confirmed 06/30/19] Milk Thistle Seed Extract [Milk Thistle] 250 mg PO DAILY 06/30/19 [History Confirmed 06/30/19] Omeprazole (Nf) [Prilosec (NF)] 40 mg PO DAILY 06/30/19 [History Confirmed 06/30] Tamsulosin CAP* [Flomax CAP*] 0.4 mg PO BID 06/30/19 [History Confirmed 06/30/19 ] Valsartan TAB* [Diovan TAB*] 80 mg PO DAILY 06/30/19 [History Confirmed 06/30/19 ] Vitamin K2 And Vitamin D3 100mcg-125mcg 1 cap PO DAILY 06/30/19 [History Confirmed 06/30/19] Zyflamend 1 cap PO BID 06/30/19 [History Confirmed 06/30/19] celeCOXIB CAP* [CeleBREX CAP*] 100 mg PO BID 06/30/19 [History Confirmed ] PMH/Surg Hx/FS Hx/Imm Hx Previously Healthy: Yes Endocrine/Hematology History: Denies: Hx Diabetes, Hx Anemia Cardiovascular History: Reports: Hx Angina, Hx Atrial Fibrillation, Hx Hypercholesterolemia, Hx Hypertension, Hx Supraventricular Ventricular Tachycardia - 20 years ago, Other Cardiovascular Problems/Disorders - SVT Denies: Hx Coronary Artery Disease, Hx Myocardial Infarction, Hx Pacemaker/ ICD Respiratory History: Reports: Hx Sleep Apnea Denies: Hx Asthma, Hx Chronic Obstructive Pulmonary Disease (COPD) GI History: Reports: Hx Gastroesophageal Reflux Disease Denies: Hx Jaundice History: Reports: Hx Benign Prostatic Hyperplasia Denies: Hx Renal Disease Sensory History: Reports: Hx Contacts or Glasses Denies: Hx Legally Blind, Hx Deafness, Hx Hearing Aid Opthamlomology History: Reports: Hx Contacts or Glasses EENT History: Denies: Hx Deafness Psychiatric History: Denies: Hx Panic Disorder - Cancer History Cancer Type, Location and Year: Prostate, in treatment as of 06/30/19 - Surgical History Surgical History: Yes Surgery Procedure, Year, and Place: APPENDIX. knee surgery age 10. lipoma removal right antecub area Infectious Disease History: No Infectious Disease History: Denies: Traveled Outside the [place] in Last 30 Days - Family History Known Family History: Positive: Cardiac Disease, Hypertension, Other - Prostate cancer - Social History Occupation: Retired Lives: With Family Alcohol Use: Rare Hx Substance Use: Yes Substance Use Type: Reports: None Substance Use Comment - Amount & Last Used: once every few years Hx Tobacco Use: No Smoking Status (MU): Never Smoked Tobacco Review of Systems Negative: Fever Positive: Palpitations, Other - Positive chest discomfort Positive: Shortness Of Breath Negative: Vomiting, Nausea All Other Systems Reviewed And Are Negative: Yes Physical Exam - Summary Physical Exam Summary: Constitutional: Well-developed, Well-nourished, Alert. (-) Distressed Skin: Warm, Dry HENT: Normocephalic; Atraumatic Eyes: Conjunctiva normal Neck: Musculoskeletal ROM normal neck. (-) JVD, (-) Stridor, (-) Nuchal rigidity Cardio: Rhythm regular, rate normal, Heart sounds normal; Intact distal pulses; Radial pulses are 2+ and symmetric. (-) Murmur Pulmonary/Chest wall: Effort normal. (-) Respiratory distress, (-) Wheezes, (-) Rales Abd: Soft, (-) tenderness, (-) Distension, (-) Guarding, (-) Rebound Musculoskeletal: (-) Edema Lymph: (-) Cervical adenopathy Neuro: Alert, Oriented x3 Psych: Mood and affect Normal Triage Information Reviewed: Yes Vital Signs On Initial Exam: Initial Vitals Temp Pulse Resp BP Pulse Ox 96.8 F 64 18 149/91 100 06/30/19 07:10 06/30/19 07:10 06/30/19 07:10 06/30/19 07:10 06/30/19 07:10 Vital Signs Reviewed: Yes Procedures - Sedation Patient Received Moderate/Deep Sedation with Procedure: No Diagnostics - Vital Signs Vital Signs Temp Pulse Resp BP Pulse Ox 06/30/19 07:10 96.8 F 64 18 149/91 100 - Laboratory Result Diagrams: 06/30/19 07:27 06/30/19 07:27 Lab Statement: Any lab studies that have been ordered have been reviewed, and results considered in the medical decision making process. - Radiology Chest X-ray Radiology Interpretation Completed By: Radiologist Summary of Radiographic Findings: Chest X-ray IMPRESSION: #. No evidence for acute intrathoracic disease. #. Potential obstructive lung disease. Reviewed by ED physician. - EKG 07:06 Cardiac Rate: NL - 64 BPM EKG Rhythm: Sinus Rhythm ST Segment: Normal Ectopy: None EKG Comparison: No Significant Change - Compared with 10/24/18 Summary of EKG Findings: EKG at 07:06 reveals 64 BPM with normal sinus rhythm, no STEMI, compared with 10/24/18 does not appear to have any significant changes. Reviewed and interpreted by ED physician. Re-Evaluation - Re-Evaluation First Eval Re-Evaluation Time: 09:50 Comment: no further episodes of palpitations. Can f/u w collar pointer. Course/Dx - Course Course Of Treatment: 63-year-old male with a history of paroxysmal A. fib on diltiazem presents with palpitations. - EKG sinus, patient has no current complaints. No CP or SOB (did have tightness w palpitations which subsided before 5 am) We'll check labs including electrolytes, trop x1 here (about 3 hours after episode) observe on telemetry and discuss with cardiology. Patient just had holter monitor. - Diagnoses Provider Diagnoses: Palpitations - Physician Notifications Discussed Care Of Patient With: Mendzoa Abreu - At 08:48, Dr. Mendoza Abreu states the patient should follow up with Dr. Calderon. Time Discussed With Above Provider: 08:48 Discharge ED - Sign-Out/Discharge Documenting (check all that apply): Patient Departure - Discharge - Discharge Plan Condition: Stable Disposition: HOME Patient Education Materials: Heart Palpitations (DC) Referrals: Krystle Hernandez MD [Primary Care Provider] - Tommy Calderon MD [Medical Doctor] - Additional Instructions: You were seen in the emergency department for palpitations. Your election lites and troponin were normal. EKG showed sinus (not atrial fibrillation). We discussed this w our on-call collar pointer, Dr. Abreu, who recommended he follow up with your collar pointer. If any studies were not completed at the time of discharge you will be called with the relevant results. Please follow up with your primary care doctor in next 2-3 days and return to emergency department for worsening palpitations, chest pain, trouble breathing or concerning symptoms. It was a pleasure taking care of you today. - Billing Disposition and Condition Condition: STABLE Disposition: Home - Attestation Statements Document Initiated by Scribe: Yes Documenting Scribe: Gillian Stratton Provider For Whom Scribe is Documenting (Include Credential): Linda Flores MD Scribe Attestation: I, Gillian Stratton, scribed for Linda Flores MD on 06/30/19 at 1044. Scribe Documentation Reviewed: Yes Provider Attestation: The documentation as recorded by the scribe, Gillian Stratton accurately reflects the service I personally performed and the decisions made by me, Linda Flores MD Status of Scribe Document: Viewed
[2019-06-30 07:50] LABS: Albumin 4.4 g/dL (3.2-5.2); Albumin/Globulin Ratio 1.7 (1-3); BUN/Creatinine Ratio 15.3 (8-20); Calcium 9.6 mg/dL (8.6-10.3); Globulin 2.6 g/dL (2-4); Potassium 4.5 mmol/L (3.5-5.0); Total Bilirubin 0.6 mg/dL (0.2-1.0)
[2019-06-30 08:28] LABS: Troponin I 0.01 ng/mL (<0.04)
[2019-06-30 10:20] VITALS: BP 140/87
== END 2019-06-30 10:20 | disposition home or self-care (01) ==
LOC: ED 07:02
DX: R00.2 Palpitations (principal); I48.0 Paroxysmal atrial fibrillation; Z79.82 Long term (current) use of aspirin; I10 Essential (primary) hypertension; Z85.46 Personal history of malignant neoplasm of prostate
CPT/HCPCS: 36415; 71046; 80053; 83735; 84484; 85025; 93005; 99283

== ENCOUNTER 2021-10-11 19:21 | Observation (INO) ==
[2021-10-11] MEDS ORDERED: Droperidol 5 MG/2 ML 2 ML VIAL IV ONE (19:45)
[2021-10-11] MEDS ORDERED: Lactated Ringers 1000 ml BAG 1,000 ML IV ONE (19:45)
[2021-10-11 20:27] LABS: ABS Lymphocytes 0.4 10^3/ul (1.0-4.8); ABS Monocytes 0.3 10^3/ul (0-0.8); ABS Neutrophils 4.9 10^3/ul (1.5-7.7); Hematocrit 42 % (42-52); Hemoglobin 14.2 g/dL (14.0-18.0); Lymphocyte % 6.7 %; Mean Corpuscular HGB Conc 34 g/dL (31-36); Mean Corpuscular Hemoglobin 28 pg (27-31); Mean Corpuscular Volume 83 fL (80-94); Mean Platelet Volume 8.4 fL (7.4-10.4); Nucleated Red Blood Cells % 0.1; Platelet Count 139 10^3/uL (150-450); Red Blood Count 5.06 10^6 /uL (4.18-5.48); Red Cell Distribution Width 14 % (10-15); White Blood Count 5.5 10^3/uL (3.5-10.8)
[2021-10-11 20:47] LABS: Albumin 3.9 g/dL (3.2-5.2); Albumin/Globulin Ratio 1.3 (1-3); C Reactive Protein 17.89 mg/L (<8.01); Calcium 9.2 mg/dL (8.6-10.3); Globulin 2.9 g/dL (2-4); Total Bilirubin 1.4 mg/dL (0.2-1.0); Total Protein 6.8 g/dL (6.4-8.9); eGFR CKD-EPI 65.2 (>60)
[2021-10-11 21:26] LABS: Urine Appearance Cloudy; Urine Bilirubin Negative (Negative); Urine Blood Negative (Negative); Urine Color Yellow; Urine Glucose Negative (Negative); Urine Ketones Negative (Negative); Urine Nitrite Negative (Negative); Urine Protein Negative (Negative); Urine Specific Gravity 1.029 (1.002-1.030); Urine Urobilinogen Negative (Negative)
[2021-10-11] MEDS ORDERED: Morphine 4 MG/ML VIAL (1 ml) IV PRN (21:50)
[2021-10-11] MEDS ORDERED: Morphine 4 MG/ML VIAL (1 ml) IV ONE (21:50)
[2021-10-11] MEDS ORDERED: Iohexol 300 (CONTRAST) 10 ML SDV IV ONE (22:56)
[2021-10-12] MEDS ORDERED: Acetaminophen IV 1 GM/100ML 100 ML IV PRN (01:08)
[2021-10-12] MEDS ORDERED: Ondansetron 4 mg VIAL 2 MG/ML 2 ml VIAL IV PRN (01:08)
[2021-10-12] MEDS ORDERED: Lactated Ringers 1000 ml BAG 1,000 ML IV SCH ×2 (02:00→03:56)
[2021-10-12 06:11] LABS: ABS Lymphocytes 0.7 10^3/ul (1.0-4.8); ABS Monocytes 0.3 10^3/ul (0-0.8); ABS Neutrophils 2.8 10^3/ul (1.5-7.7); Eosinophil % 0.1 %; Hematocrit 40 % (42-52); Hemoglobin 13.2 g/dL (14.0-18.0); Lymphocyte % 18.3 %; Mean Corpuscular HGB Conc 33 g/dL (31-36); Mean Corpuscular Hemoglobin 28 pg (27-31); Mean Corpuscular Volume 84 fL (80-94); Mean Platelet Volume 8.4 fL (7.4-10.4); Nucleated Red Blood Cells % 0.1; Platelet Count 120 10^3/uL (150-450); Red Blood Count 4.72 10^6 /uL (4.18-5.48); Red Cell Distribution Width 14 % (10-15); White Blood Count 3.8 10^3/uL (3.5-10.8)
[2021-10-12] MEDS: Heparin 5000 UNITS/ML 1 mL VIAL SUBCUT SCH ×3 (06:16→21:10)
[2021-10-12 06:25] LABS: Calcium 8.5 mg/dL (8.6-10.3); eGFR CKD-EPI 70.1 (>60)
[2021-10-12 06:42] LABS: INR 1.22 (0.86-1.15)
[2021-10-12 07:47] LABS: Erythrocyte Sed Rate 14 mm/Hr (0-19)
[2021-10-13 05:09] LABS: ABS Eosinophils 0.1 10^3/ul (0-0.6); ABS Lymphocytes 1.1 10^3/ul (1.0-4.8); ABS Monocytes 0.4 10^3/ul (0-0.8); Eosinophil % 3.4 %; Hematocrit 38 % (42-52); Hemoglobin 12.8 g/dL (14.0-18.0); Lymphocyte % 30.1 %; Mean Corpuscular HGB Conc 34 g/dL (31-36); Mean Corpuscular Hemoglobin 28 pg (27-31); Mean Corpuscular Volume 84 fL (80-94); Nucleated Red Blood Cells % 0.1; Platelet Count 117 10^3/uL (150-450); Red Blood Count 4.51 10^6 /uL (4.18-5.48); Red Cell Distribution Width 14 % (10-15); White Blood Count 3.8 10^3/uL (3.5-10.8)
[2021-10-13 05:24] LABS: Albumin 3.5 g/dL (3.2-5.2); Albumin/Globulin Ratio 1.3 (1-3); Calcium 8.5 mg/dL (8.6-10.3); Globulin 2.6 g/dL (2-4); Potassium 3.9 mmol/L (3.5-5.0); Total Bilirubin 1.1 mg/dL (0.2-1.0); Total Protein 6.1 g/dL (6.4-8.9); eGFR CKD-EPI 70.8 (>60)
[2021-10-13] MEDS: Heparin 5000 UNITS/ML 1 mL VIAL SUBCUT SCH (06:03)
[2021-10-13 12:21] VITALS: BP 121/82
== END 2021-10-13 15:22 | disposition home or self-care (01) ==
LOC: SSU 19:21 → ED 19:21 → SUATTDRO 10-12 01:02
PROVIDERS: ADMIT Internal Medicine; ATTEND Student in an Organized Health Care Education/Training Program

== ENCOUNTER 2024-08-22 15:54 | Observation (INO) ==
[2024-08-22] MEDS: Lactated Ringers 1000 ml BAG 1,000 ML IV ONE ×3 (16:21→21:47)
[2024-08-22] MEDS: Ondansetron 4 mg VIAL 2 MG/ML 2 ml VIAL IV ONE (16:22)
[2024-08-22] MEDS: Morphine 4 MG/ML VIAL (1 ml) IV ONE (16:24)
[2024-08-22 16:30] LABS: ABS Eosinophils 0.1 10^3/uL (0.0-0.5); ABS Lymphocytes 2.2 10^3/uL (1.0-4.8); ABS Monocytes 0.5 10^3/uL (0.0-1.1); ABS Neutrophils 4.3 10^3/uL (1.5-7.6); ABS Nucleated RBC 0.01 10^3/ul; Eosinophil % 1.2 %; Hematocrit 47.3 % (38-53); Hemoglobin 16.1 g/dL (13.2-16.3); Lymphocyte % 30.4 %; Mean Corpuscular Hemoglobin 27.9 pg (27-33); Mean Corpuscular Volume 82.1 fL (80-97); Mean Platelet Volume 8.8 fL (7.5-11.2); Nucleated Red Blood Cells % 0.1 %/100WBC (0.0-0.8); Platelet Count 180 10^3/uL (150-450); Red Blood Count 5.76 10^6/uL (4.06-5.63); White Blood Count 7.1 10^3/uL (3.6-10.2)
[2024-08-22 16:36] LABS: INR 1.17 (0.85-1.14)
[2024-08-22] MEDS: HYDROmorphone 1 MG/1 ML SYRINGE IV ONE (16:49)
[2024-08-22 17:09] LABS: Calcium 9.6 mg/dL (8.6-10.3); Creatinine, Serum 1.26 mg/dL (0.67-1.17); Potassium 4.3 mmol/L (3.5-5.0)
[2024-08-22 17:32] LABS: Albumin 4.5 g/dL (3.5-5.7); Albumin/Globulin Ratio 1.6 (1-3); Globulin 2.9 g/dL (2-4); Total Bilirubin 2.5 mg/dL (0.2-1.0); Total Protein 7.4 g/dL (6.4-8.9)
[2024-08-22 17:54] LABS: Urine Appearance Clear; Urine Bilirubin Negative (Negative); Urine Blood Negative (Negative); Urine Color Yellow; Urine Glucose Negative (Negative); Urine Ketones Negative (Negative); Urine Nitrite Negative (Negative); Urine Protein Trace (Negative); Urine Specific Gravity 1.015 (1.002-1.030); Urine Urobilinogen 1+ (Negative)
[2024-08-22 17:55] LABS: Urine Bacteria Absent /HPF (Absent); Urine Red Blood Cell Trace(0-2/hpf) /HPF (0-Trace); Urine White Blood Cell Trace(0-5/hpf) /HPF (0-Trace)
[2024-08-22 17:58] LABS: High Sensitivity Troponin 1 Hr 3 pg/mL (<20)
[2024-08-22] MEDS: Iohexol 350 (CONTRAST) 500 ML MDV IV ONE (18:45)
[2024-08-22] MEDS: HYDROmorphone 1 MG/1 ML SYRINGE IV SLOW PU ONE (19:39)
[2024-08-22] MEDS ORDERED: Morphine 2 MG/ML SYRINGE IV PRN (22:01)
[2024-08-22] MEDS ORDERED: Ondansetron 4 mg VIAL 2 MG/ML 2 ml VIAL IV PRN (22:05)
[2024-08-22] MEDS ORDERED: Lactated Ringers 1000 ml BAG 1,000 ML IV SCH ×2 (23:00)
[2024-08-22] MEDS: Lactated Ringers 1000 ml BAG 1,000 ML IV SCH (23:17)
[2024-08-23] MEDS: HYDROmorphone 1 MG/1 ML SYRINGE IV PRN (00:09)
[2024-08-23 05:17] LABS: ABS Eosinophils 0.1 10^3/uL (0.0-0.5); ABS Lymphocytes 1.7 10^3/uL (1.0-4.8); ABS Monocytes 0.5 10^3/uL (0.0-1.1); ABS Neutrophils 4.2 10^3/uL (1.5-7.6); Eosinophil % 1.7 %; Hematocrit 39.9 % (38-53); Hemoglobin 13.6 g/dL (13.2-16.3); Lymphocyte % 26.4 %; Mean Corpuscular Hemoglobin 28.1 pg (27-33); Mean Corpuscular Hgb Conc 34.1 g/dL (31-36); Mean Corpuscular Volume 82.5 fL (80-97); Mean Platelet Volume 8.8 fL (7.5-11.2); Platelet Count 139 10^3/uL (150-450); Red Blood Count 4.83 10^6/uL (4.06-5.63); Red Cell Distribution Width 14.2 % (12-17); White Blood Count 6.5 10^3/uL (3.6-10.2)
[2024-08-23 06:24] LABS: Albumin 3.6 g/dL (3.5-5.7); Albumin/Globulin Ratio 1.6 (1-3); Calcium 8.4 mg/dL (8.6-10.3); Creatinine, Serum 1.18 mg/dL (0.67-1.17); Globulin 2.3 g/dL (2-4); Magnesium 1.8 mg/dL (1.9-2.7); Phosphorus 3.8 mg/dL (2.5-5.0); Potassium 4.6 mmol/L (3.5-5.0); Total Bilirubin 2.1 mg/dL (0.2-1.0); Total Protein 5.9 g/dL (6.4-8.9)
[2024-08-23] MEDS: Magnesium Sulfate 2 gm BAG 2 GM/50 ML BAG IVPB ONE (08:04)
[2024-08-23] MEDS ORDERED: Enoxaparin 40 MG/0.4 ML SYR SUBCUT SCH (21:00)
[2024-08-24 05:59] LABS: ABS Eosinophils 0.2 10^3/uL (0.0-0.5); ABS Lymphocytes 2.1 10^3/uL (1.0-4.8); ABS Monocytes 0.5 10^3/uL (0.0-1.1); ABS Neutrophils 3.8 10^3/uL (1.5-7.6); ABS Nucleated RBC 0.01 10^3/ul; Eosinophil % 2.6 %; Hematocrit 39.4 % (38-53); Hemoglobin 13.5 g/dL (13.2-16.3); Lymphocyte % 31.5 %; Mean Corpuscular Hemoglobin 28.2 pg (27-33); Mean Corpuscular Hgb Conc 34.3 g/dL (31-36); Mean Corpuscular Volume 82.1 fL (80-97); Mean Platelet Volume 9.1 fL (7.5-11.2); Nucleated Red Blood Cells % 0.2 %/100WBC (0.0-0.8); Platelet Count 139 10^3/uL (150-450); Red Cell Distribution Width 14.1 % (12-17); White Blood Count 6.5 10^3/uL (3.6-10.2)
[2024-08-24 06:27] LABS: Calcium 8.6 mg/dL (8.6-10.3); Creatinine, Serum 1.17 mg/dL (0.67-1.17); Potassium 4.2 mmol/L (3.5-5.0); eGFR CKD-EPI 66.6 (>60)
[2024-08-24] MEDS ORDERED: Ondansetron 4 mg VIAL 2 MG/ML 2 ml VIAL IV PRN (10:20)
[2024-08-24] MEDS ORDERED: fentaNYL 100 mcg/2 ml 50 MCG/ML VIAL IV PRN (10:20)
[2024-08-24] MEDS ORDERED: Naloxone 0.4 mg VIAL 0.4 mg/ml 1 ml VIAL IV PRN (10:20)
[2024-08-24] MEDS ORDERED: NS 0.45% 1000 ml BAG 1,000 ML IV SCH (11:00)
[2024-08-24] MEDS: Buffered Lidocaine 1% SYRIN 1 ml INTRADERM ONE (11:12)
[2024-08-24] MEDS: Lactated Ringers 1000 ml BAG 1,000 ML IV SCH (11:58)
[2024-08-24] MEDS ORDERED: Rocuronium 50 mg VIAL 10 mg/ml 5 ml VIAL (50 mg) ONE ×2 (12:08→14:21)
[2024-08-24] MEDS ORDERED: Lidocaine 2% PF 5 ML VIAL ONE (12:08)
[2024-08-24] MEDS ORDERED: Propofol 10 MG/ML 20 ML BTL ONE (12:08)
[2024-08-24] MEDS ORDERED: fentaNYL 250 mcg/5 ml 50 MCG/ML 5 ml VIAL (250 MCG) ONE (12:10)
[2024-08-24] MEDS ORDERED: Midazolam 2 mg/2 ml VIAL 1 mg/ml 2 ml VIAL (2 mg) ONE (12:11)
[2024-08-24] MEDS ORDERED: Scopolamine 1 mg/72hr PATCH ONE (12:15)
[2024-08-24] MEDS: Scopolamine 1 mg/72hr PATCH TRANSDERM ONE ×2 (12:18→19:28)
[2024-08-24 12:24] LABS: Albumin 3.7 g/dL (3.5-5.7); Albumin/Globulin Ratio 1.6 (1-3); Direct Bilirubin 0.2 mg/dL (0.03-0.18); Globulin 2.3 g/dL (2-4); Indirect Bilirubin 2.1 mg/dL (0.3-1.0); Total Bilirubin 2.3 mg/dL (0.2-1.0)
[2024-08-24] MEDS ORDERED: Acetaminophen IV 1 GM/100ML 1,000 MG/100 ML BAG IV ONE (13:36)
[2024-08-24] MEDS ORDERED: Ondansetron 4 mg VIAL 2 MG/ML 2 ml VIAL ONE (14:38)
[2024-08-24] MEDS: Acetaminophen IV 1 GM/100ML 1,000 MG/100 ML BAG IV ONE (19:29)
[2024-08-24] MEDS: Acetaminophen IV 1 GM/100ML 1,000 MG/100 ML BAG IV PRN (21:10)
[2024-08-25 05:59] LABS: ABS Lymphocytes 1.1 10^3/uL (1.0-4.8); ABS Monocytes 0.7 10^3/uL (0.0-1.1); ABS Neutrophils 6.3 10^3/uL (1.5-7.6); Eosinophil % 0.1 %; Hematocrit 38.5 % (38-53); Hemoglobin 13.1 g/dL (13.2-16.3); Lymphocyte % 13.9 %; Mean Corpuscular Hemoglobin 28.2 pg (27-33); Mean Corpuscular Hgb Conc 34.1 g/dL (31-36); Mean Corpuscular Volume 82.6 fL (80-97); Mean Platelet Volume 8.8 fL (7.5-11.2); Platelet Count 135 10^3/uL (150-450); Red Blood Count 4.66 10^6/uL (4.06-5.63); Red Cell Distribution Width 13.7 % (12-17); White Blood Count 8.2 10^3/uL (3.6-10.2)
[2024-08-25 06:18] LABS: Calcium 8.6 mg/dL (8.6-10.3); Creatinine, Serum 1.11 mg/dL (0.67-1.17); Potassium 4.6 mmol/L (3.5-5.0)
[2024-08-25 09:45] VITALS: BP 144/86
== END 2024-08-25 11:45 | disposition home or self-care (01) ==
LOC: EDHOLD 15:54 → ED 15:54 → SUATTDRO 21:36 → MEDTELE 08-23 02:17
PROVIDERS: ADMIT Internal Medicine; ATTEND Hospitalist

== ENCOUNTER 2024-09-03 19:20 | Observation (INO) ==
[2024-09-03 20:04] LABS: ABS Eosinophils 0.1 10^3/uL (0.0-0.5); ABS Lymphocytes 1.9 10^3/uL (1.0-4.8); ABS Monocytes 0.7 10^3/uL (0.0-1.1); ABS Neutrophils 8.2 10^3/uL (1.5-7.6); ABS Nucleated RBC 0.01 10^3/ul; Eosinophil % 0.5 %; Hematocrit 47.9 % (38-53); Hemoglobin 16.3 g/dL (13.2-16.3); Lymphocyte % 17.7 %; Mean Corpuscular Hemoglobin 28.3 pg (27-33); Mean Corpuscular Volume 83.1 fL (80-97); Nucleated Red Blood Cells % 0.1 %/100WBC (0.0-0.8); Platelet Count 192 10^3/uL (150-450); Red Blood Count 5.76 10^6/uL (4.06-5.63)
[2024-09-03] MEDS: HYDROmorphone 1 MG/1 ML SYRINGE IV ONE ×2 (20:09→23:35)
[2024-09-03] MEDS: Ondansetron 4 mg VIAL 2 MG/ML 2 ml VIAL IV ONE ×2 (20:11→21:40)
[2024-09-03] MEDS: Lactated Ringers 1000 ml BAG 1,000 ML IV ONE (20:14)
[2024-09-03 21:04] LABS: C Reactive Protein 2.87 mg/L (<8.01); Creatinine, Serum 1.54 mg/dL (0.67-1.17); Potassium 4.2 mmol/L (3.5-5.0); eGFR CKD-EPI 47.9 (>60)
[2024-09-03 21:24] LABS: Albumin 4.7 g/dL (3.5-5.7); Albumin/Globulin Ratio 1.6 (1-3); Total Bilirubin 2.9 mg/dL (0.2-1.0); Total Protein 7.7 g/dL (6.4-8.9)
[2024-09-03] MEDS: HYDROmorphone 1 MG/1 ML SYRINGE IV SLOW PU ONE (21:33)
[2024-09-03] MEDS: Iodixanol 320 (CONTRAST) 100 ML SDV IV ONE (22:25)
[2024-09-04] MEDS: HYDROmorphone 1 MG/1 ML SYRINGE IV SLOW PU PRN ×2 (02:12→11:17)
[2024-09-04] MEDS ORDERED: Acetaminophen IV 1 GM/100ML 1,000 MG/100 ML BAG IV PRN (03:00)
[2024-09-04] MEDS: Lactated Ringers 1000 ml BAG 1,000 ML IV ONE ×2 (04:03→14:50)
[2024-09-04] MEDS ORDERED: Naloxone Nasal Spray 4 MG/0.1 ML NASAL.SPR INTRANASAL PRN (06:16)
[2024-09-04] MEDS: HYDROmorphone 1 MG/1 ML SYRINGE IV SLOW PU ONE (06:23)
[2024-09-04] MEDS: Ondansetron 4 mg VIAL 2 MG/ML 2 ml VIAL IV PRN ×2 (06:24→16:09)
[2024-09-04 06:37] LABS: ABS Lymphocytes 0.9 10^3/uL (1.0-4.8); ABS Monocytes 0.6 10^3/uL (0.0-1.1); ABS Neutrophils 8.5 10^3/uL (1.5-7.6); Eosinophil % 0.1 %; Hematocrit 45.8 % (38-53); Hemoglobin 15.3 g/dL (13.2-16.3); Lymphocyte % 9.1 %; Mean Corpuscular Hemoglobin 27.9 pg (27-33); Mean Corpuscular Hgb Conc 33.5 g/dL (31-36); Mean Corpuscular Volume 83.2 fL (80-97); Mean Platelet Volume 9.2 fL (7.5-11.2); Platelet Count 178 10^3/uL (150-450); White Blood Count 10.1 10^3/uL (3.6-10.2)
[2024-09-04] MEDS: Lactated Ringers 1000 ml BAG 1,000 ML IV SCH (06:52)
[2024-09-04 07:26] LABS: Albumin/Globulin Ratio 1.6 (1-3); Alkaline Phosphatase 170 U/L (35-149); Anion Gap 7 mmol/L (2-16); Blood Urea Nitrogen 16 mg/dL (6-24); CO2 Carbon Dioxide 31 mmol/L (22-32); Calcium 8.9 mg/dL (8.6-10.3); Chloride 100 mmol/L (101-111); Creatinine, Serum 1.37 mg/dL (0.67-1.17); Globulin 2.5 g/dL (2-4); Glucose 146 mg/dL (70-100); Sodium 138 mmol/L (135-145); Total Bilirubin 4.5 mg/dL (0.2-1.0); Total Protein 6.5 g/dL (6.4-8.9); eGFR CKD-EPI 55.2 (>60)
[2024-09-04 07:37] LABS: ALT 892 U/L (7-52)
[2024-09-04 09:15] LABS: Direct Bilirubin Redraw 2.4 mg/dL (0.1-0.5); Potassium Redraw 5.1 mmol/L (3.5-5.0)
[2024-09-04] MEDS: Metoclopramide 5 MG/ML VIAL (10 mg) IV PRN (09:46)
[2024-09-04] MEDS ORDERED: HYDROmorphone 1 MG/1 ML SYRINGE IV SLOW PU PRN (10:00)
[2024-09-04 13:44] LABS: Calcium 8.9 mg/dL (8.6-10.3); Creatinine, Serum 1.52 mg/dL (0.67-1.17); Potassium 4.7 mmol/L (3.5-5.0); eGFR CKD-EPI 48.7 (>60)
[2024-09-04 14:00] LABS: Albumin/Globulin Ratio 1.7 (1-3); Globulin 2.4 g/dL (2-4); Total Bilirubin 6.1 mg/dL (0.2-1.0); Total Protein 6.4 g/dL (6.4-8.9)
[2024-09-04] MEDS ORDERED: Zosyn per Pharmacy NOTE FOLLOW UP SCH (15:00)
[2024-09-04 15:09] VITALS: BP 150/101
[2024-09-04] MEDS: Piperacillin/Tazobac 3.375 BAG 3.375 GM/100 ML BAG IV ONE (15:12)
[2024-09-04] MEDS: cefTRIAXone 2 gm/50 mL D5W 2 GM/50 ML BAG IV SCH (15:39)
[2024-09-04] MEDS: metroNIDAZOLE IV 500 MG/100ML 500 MG/100 ML BAG IVPB ONE (16:11)
== END 2024-09-04 18:39 | disposition short-term general hospital (02) ==
LOC: ED 19:20 → EDHOLD 19:20 → SUATTDRO 09-04 01:42 → MEDTELE 09-04 13:17
PROVIDERS: ADMIT Internal Medicine; ATTEND Student in an Organized Health Care Education/Training Program